=== PATIENT | male | born 1980 | race Caucasian/White ===

== ENCOUNTER 2019-05-28 04:21 | Inpatient (IN) | payer OTHER ==
[~2019-05-28] VITALS: Ht 170.2 cm; Wt 73.6 kg
[~2019-05-28 04:21] MED LIST: DIPH25 PO; DULO30 PO; HUMALOG
[2019-05-28 05:22] LABS: BASOPHILS ABSOLUTE AUTO 0.08 K/mm3 (0.00-0.23); BASOPHILS PERCENT AUTO 0 % (0-2); EOSINOPHILS PERCENT AUTO 0 % (0-6); Hematocrit 44.7 % (37.0-53.0); IMMATURE GRAN ABSOLUTE AUTO 0.24 K/mm3 (0.00-0.10); IMMATURE GRAN PERCENT AUTO 1 % (0-1); LYMPHOCYTES PERCENT AUTO 2 % (21-46); MONOCYTES ABSOLUTE AUTO 1.26 K/mm3 (0.16-1.47); MONOCYTES PERCENT AUTO 5 % (4-13); Mean Corpuscular HGB 32.2 pg (26.0-34.0); Mean Corpuscular HGB Conc 33.6 g/dL (31.5-36.5); Mean Corpuscular Volume 96 fL (80-100); Mean Platelet Volume 11.6 fL (9.1-12.4); NEUTROPHILS ABSOLUTE AUTO 24.94 K/mm3 (1.96-9.15); NEUTROPHILS PERCENT AUTO 93 % (41-73); Platelet Count 300 K/mm3 (150-400); RDW Coefficient Variation 12.2 % (11.7-14.2); RDW Standard Deviation 42.1 fL (35.1-46.3); Red Blood Cell Count 4.66 M/mm3 (4.30-5.90); White Blood Cell Count 26.92 K/mm3 (4.00-11.30)
[2019-05-28 05:33] LABS: Albumin, Blood 3.7 g/dL (3.4-5.0); Albumin/Globulin Ratio 0.9 (0.8-1.8); Bilirubin, Total 1.2 mg/dL (0.1-1.0); Bun/Creatinine Ratio 20.6 (12.0-20.0); Calcium, Blood 9.2 mg/dL (8.5-10.1); Creatinine, Blood 1.41 mg/dL (0.60-1.20); Globulin, Blood 4.1 g/dL (2.2-4.0); Potassium, Blood 5.4 mmol/L (3.5-5.5); Total Protein, Blood 7.8 g/dL (6.4-8.2)
[2019-05-28 07:50] LABS: Source, Urine Clean Catch
[2019-05-28 08:07] LABS: Bilirubin, Urine Neg (Neg); Blood, Urine Neg (Neg); Glucose Qualitative, Urine 4+ (Neg); Ketones, Urine 4+ (Neg); Leukocyte Esterase, Urine Neg (Neg); Nitrite, Urine Pos (Neg); Protein, Urine 1+ (Neg); Urobilinogen, Urine NORM (Normal)
[2019-05-28 08:17] LABS: Appearance, Urine Clear (Clear); Color, Urine Yellow (P-Yellow)
[2019-05-28 08:20] LABS: Bacteria Rare /hpf; Red Blood Cells, Urine 0-2 /hpf (0-2); Squamous Epithelial Cells Rare /hpf (Few); White Blood Cells, Urine 0-2 /hpf (0-5)
[2019-05-28 08:26] LABS: Glucose, Blood 601 mg/dL (70-99)
--- NOTE | 2019-05-28 09:26 | NUR ---
ASSUMPTION OF CARE ASSUMED CARE OF PT @ 0700. PT UP IN BED, VOMITING WITH 100ml OF EMESIS. CALL PLACED TO PROVIDER, NEW ORDERS FOR ZOFRAN AND PHENERGRAN OBTAINED, MEDICATED WITH PHENERGRAN. PT USING URINAL IN BED, SPECIMENT SENT TO LAB. DR POE TO SEE PT, ORDERS TO CALL WITH BMP RESULTS. INSULIN DRIP AT 5.
[2019-05-28 09:50] LABS: Glucose (ISTAT POC) 444 mg/dL (70-99)
--- NOTE | 2019-05-28 10:30 | NUR ---
IN TO SEE PT, PT HOLDING EMESIS BAG, NO EMESIS AT THIS TIME, ZOFRAN ADMINISTERED. INSULIN DRIP AT 4, CBG 417.
[2019-05-28 12:43] LABS: Anion Gap 8 mmol/L (6-16); Blood Urea Nitrogen 28 mg/dL (8-24); Bun/Creatinine Ratio 24.6 (12.0-20.0); CO2, Blood 23 mmol/L (21-32); Calcium, Blood 8.5 mg/dL (8.5-10.1); Chloride, Blood 112 mmol/L (98-108); Creatinine, Blood 1.14 mg/dL (0.60-1.20); Glomerular Filtration Rate >60 (60-); Glucose, Blood 344 mg/dL (70-99); Potassium, Blood 3.8 mmol/L (3.5-5.5)
[2019-05-28 12:46] LABS: Sodium, Blood 143 mmol/L (136-145)
--- NOTE | 2019-05-28 15:40 | NUR ---
CALLED DR POE, REVIEWED LAB RESULTS FOR 1200 BMP, UPDATED ON PT STATUS. PT CONTINUES TO HAVE NAUSEA/VOMITING AND ABD PAIN. D5 AND 1/2NS STARTED AT 100/hr. ORDERS TO START PTS HOME INSULIN PUMP AND DC INSULIN DRIP ONCE NAUSEA AND VOMITING HAS SUBSIDED.
--- NOTE | 2019-05-28 18:04 | NUR ---
SHIFT SUMMARY PT ORIENTED, DROWSY, AROUSES TO VERBAL STIMULI. PT REMAINS SINUS TACH ON THE MONITOR, RATE 100-120, INTERMITTENT HYPOTENSION, TMAX OF 99.6. ANION GAP CLOSED, LAST CBG 169, PT CONTINUES TO HAVE NAUSEA/VOMITING AND ABD PAIN T/O SHIFT. MEDICATED WITH PRN ZOFRAN, PHENERGAN AND FENTANYL. PT THIRSTY T/O SHIFT, EXPLAINED NPO STATUS AND IMPORTANCE OF NO ORAL INTAKE WHILE STILL NAUSEATED AND VOMITING, ORAL SWABS PROVIDED T/O SHIFT. PT CURRENTLY RESTING IN BED.
[2019-05-28 18:45] LABS: Anion Gap 3 mmol/L (6-16); Blood Urea Nitrogen 26 mg/dL (8-24); Bun/Creatinine Ratio 25.5 (12.0-20.0); CO2, Blood 26 mmol/L (21-32); Chloride, Blood 115 mmol/L (98-108); Creatinine, Blood 1.02 mg/dL (0.60-1.20); Glomerular Filtration Rate >60 (60-); Glucose, Blood 197 mg/dL (70-99); Potassium, Blood 3.7 mmol/L (3.5-5.5); Sodium, Blood 144 mmol/L (136-145)
--- NOTE | 2019-05-28 19:23 | NUR ---
ASSUMED CARE OF PT, REPORT RCV'D FROM VALENTE RAMOS. PT A/O X4 LAYING ON HIS RIGHT SIDE IN BED. PT REPORTS THAT HE IS STILL HAVING SIGNIFICANT NAUSEA AND OCCASIONAL ABDOMINAL PAIN. INSULIN GTT @ 3 UNITS/HR WITH Q1H CBG. D51/2 @ 100 MLS/HR (BAG 1 OF 1.5). PT HAS HYPOACTIVE BOWEL TONESX4 AND REPORTS TENDERNESS WITH PALPATION. PT REPORTS THAT HE HAS FELT THE NEED TO HAVE A BM TWICE SINCE ADMISSION BUT WAS UNABLE TO. PT DECLINES NEED FOR STOOL SOFTENERS/LAXATIVES, ENCOURAGED TO LET MEDICAL STAFF KNOW IF HE CHANGES HIS MIND. VSS. SEE FULL SHIFT ASSESSMENT.
--- NOTE | 2019-05-29 00:01 | NUR ---
CALL TO DR. BOWIE REGARDING PT FEELING CONSTIPATED, ORDERS TO SUBMIT BOWEL ORDER SET. UPDATED DR. OSORIO ON PT'S STATUS AND ORDER FOR 1.5 L D5 1/2 NS ONLY, PER DR. OSORIO KEEP D5 1/2 RUNNING FOR ADDITIONAL 1L FOR TOTAL OF 2.5L.
[2019-05-29 00:22] LABS: Anion Gap 8 mmol/L (6-16); Blood Urea Nitrogen 24 mg/dL (8-24); Bun/Creatinine Ratio 22.6 (12.0-20.0); CO2, Blood 25 mmol/L (21-32); Calcium, Blood 8.1 mg/dL (8.5-10.1); Chloride, Blood 115 mmol/L (98-108); Creatinine, Blood 1.06 mg/dL (0.60-1.20); Glomerular Filtration Rate >60 (60-); Glucose, Blood 145 mg/dL (70-99); Potassium, Blood 3.8 mmol/L (3.5-5.5); Sodium, Blood 148 mmol/L (136-145)
--- NOTE | 2019-05-29 06:11 | NUR ---
SHIFT SUMMARY PT REMAINS ON INSULIN GTT @3 UNITS/HR, D5 1/2 NS @ 100 ML/HR LAST CBG 127. PT CONTINUES TO HAVE NAUSEA BUT NO EPISODES OF EMESIS. PT INCONTINENT OF STOOL ON 1 OCCASION (MEDIUM/SOFT/BROWN) AND WAS ABLE TO AMBULATE TO TOILET (SBA) AND HAVE ANOTHER SMALL SOFT BM. PT HAS BEEN UP TO TOILET ON 2 OCCASIONS NOW. PT STEADY ON HIS FEET BUT EASILY EXHAUSTED AND NAUSEOUS. TMAX 100.2, ALL OTHER VSS. WILL REPORT TO DAYSHIFT NURSE.
[2019-05-29 06:16] LABS: Hematocrit 40.9 % (37.0-53.0); Hemoglobin 14.2 g/dL (13.5-17.5); Mean Corpuscular HGB 32.4 pg (26.0-34.0); Mean Corpuscular HGB Conc 34.7 g/dL (31.5-36.5); Mean Platelet Volume 10.3 fL (9.1-12.4); Platelet Count 288 K/mm3 (150-400); RDW Coefficient Variation 12.2 % (11.7-14.2); RDW Standard Deviation 42.7 fL (35.1-46.3); Red Blood Cell Count 4.38 M/mm3 (4.30-5.90); White Blood Cell Count 22.28 K/mm3 (4.00-11.30)
[2019-05-29 06:19] LABS: Mean Corpuscular Volume 93 fL (80-100)
[2019-05-29 06:27] LABS: Alanine Aminotransfer (ALT/SGP 17 U/L (12-78); Albumin, Blood 3.1 g/dL (3.4-5.0); Albumin/Globulin Ratio 0.9 (0.8-1.8); Alk Phos 68 U/L (50-136); Anion Gap 7 mmol/L (6-16); Aspartate Aminotrans (AST/SGOT 15 U/L (12-37); Bilirubin, Total 1.2 mg/dL (0.1-1.0); Blood Urea Nitrogen 22 mg/dL (8-24); Bun/Creatinine Ratio 21.8 (12.0-20.0); CO2, Blood 27 mmol/L (21-32); Calcium, Blood 8.5 mg/dL (8.5-10.1); Chloride, Blood 112 mmol/L (98-108); Creatinine, Blood 1.01 mg/dL (0.60-1.20); Globulin, Blood 3.6 g/dL (2.2-4.0); Glomerular Filtration Rate >60 (60-); Glucose, Blood 90 mg/dL (70-99); Potassium, Blood 3.2 mmol/L (3.5-5.5); Sodium, Blood 146 mmol/L (136-145); Total Protein, Blood 6.7 g/dL (6.4-8.2)
--- NOTE | 2019-05-29 07:30 | NUR ---
SHIFT ASSESSMENT PT IS DROWSY THIS AM. HE IS ORIENTED TO HIMSELF AND PLACE AND COOPERATIVE WITH CARE. STATES HE IS IN FAIR AMOUNT OF PAIN TO HIS ABD AND THROAT. STATES HE DOES NOT WANT ANY PAIN MEDS. PAIN GETS BETTER WITH RE-POSISTIONING. PT STATES THROAT IS SORE FROM VOMITTING. HE STATES NAUSE IS STILL BAD THUS WILL GIVE HIM SOME ZOFRAN IV AND CON'T TO MONITOR FOR RESULTS. ASSESSMENT IS OTHERWISE BENIGN AND PT HAS NO OTHER COMPLAINTS. IV TO LT HAD HAS INSULIN AND IV FLUIDS RUNNING ORDERED WITH NO S/S OF INFILTRATION. INSULIN PUMP IS AT 0.5MG/ML/HR. WILL CALL MD REGARDING INSULIN PUMP STATUS WITH STABLE BLOOD SUGARS. PT DOES HAVE A LOW POTASSIUM WILL DISCUSS WITH MD SUPPLEMENT. PT ALSO HAS A TEMP OF 101.1 WILL DISCUSS WITH MD WELL. WILL CON'T TO MONITOR PT AND TREAT INDICATED T/O SHIFT. CALL LIGHT IN REACH.
--- NOTE | 2019-05-29 08:14 | NUR ---
UPDATE INSULIN PUM WAS TURNED OFF MD ORDERED. PT IS TO RESUME USING HIS HOME INSULIN PUMP. PT AT THIS TIME RE-STARTED HIS INSULIN PUMP. WILL CON'T TO DISCUSS WITH HIM ADJUSTING HIS PUMP. IV FLUIDS WERE ALSO TURNED OFF AT THIS TIME. DR KEVIN DID NOT HAVE ANY FURTHER ORDERS AT THIS TIME.
--- NOTE | 2019-05-29 10:45 | NUR ---
BLOOD SUGAR LEVELS INCREASING PT AT THIS TIME CON'T TO HAVE INCREASING LEVELS ON HIS BLOOD SUGARS. HE DID HAVE TO INCREASE HIS PUMP RATE WITH NO RESULTS. DR POE WAS CALLED AND WE WILL CON'T TO ADJUST WITH HIS HOME INSULIN PUMP. PT ALSO WILL RECIEVE IV POTASSIUM AT THIS TIME R/T LOW K LEVELS.
--- NOTE | 2019-05-29 13:45 | NUR ---
SHIFT UPDATE PT CON'T TO BE STABLE. HE HOWEVER STILL HAS BLOOD SUGARS IN THE 200'S BUT HOLDING STABLE WITH HIS HOME INSULIN PUMP. PT CON'T TO HAVE K RUNNING IV. HE ALSO CON'T TO HAVE COMPLAINTS OF NAUSEA. CALLED DR POE AND WILL TRANSFER PT TO MEDICAL FLOOR FOR NOW.
--- NOTE | 2019-05-29 14:46 | NUR ---
REPORT GIVEN REPORT GIVEN TO RICHARD DOE. PT CON'T TO BE STABLE. WILL TRANSFER PT UPSTAIRS WHEN ROOM AVALIABLE.
--- NOTE | 2019-05-29 17:02 | NUR ---
PATIENT ARRIVED TO MEDICAL FLOOR VIA WHEELCHAIR WITH HIS SIGNIFICANT OTHER AT HIS SIDE. PATIENT FELT NAUSEATED UPON ARRIVAL. HE TRANSFERED INTO THE BED. HIS BLOOD SUGAR WAS TAKEN AND THE RESULT WAS 236. REGLAN WAS GIVEN IN ICU. THE PATIENT STATES IT HAS YET TO HELP HIS NAUSEA. HE WANTS TO TRY TO EAT SOME DINNER. WILL CONTINUE TO MONITOR.
--- NOTE | 2019-05-29 19:20 | NUR ---
1545-DR POE CAME BY TO SEE PT. PT MAY BE DISCHARGED TONIGHT IF HE'S NOT FEELING NAUSEATED OR VOMITING AND ABLE TO HOLD HIS FOOD. 1615-CALLED DR. POE REGARDING PT'S STILL WITH UPSET STOMACH AND FEELING NAUSEATED. PT WILL BE GIVEN REGLAN ORDERED. HE ORDERED TO KEEP PATIENT IN HOSPITAL FOR ONE MORE NIGHT. 1640-PT WAS TRANSFERED TO ROOM 340.
--- NOTE | 2019-05-30 05:13 | NUR ---
SHIFT SUMMARY PT AOX3, VS STABLE, DENIES DYSPNEA. CBG 167 @HS. REPORTS 2/10 PAIN IN THROAT & MID ABDOMEN R/T THROWING UP. DENIES ANY EMESIS THIS SHIFT, HOWEVER HAS FELT NAUSEOUS & REPORTS DRY HEAVING. MEDICATED 1X W/PHENERGAN PER ORDERS. PT & SIGNIFICANT OTHER CONCERNED TO WHY PT IS DRY HEAVING, STATES HE HAS NEVER FELT THIS WAY BEFORE W/INCREASED CBGS. STILL UNABLE TO TOLERATE FOOD @THIS TIME, HAS BEEN ABLE TO KEEP SMALL SIPS OF WATER DOWN. HAD 1 LIQUID INCONTINENT BM WHILE SLEEPING & STATES THE SAME THING OCCURRED THE PREVIOUS NIGHT. I WILL CONTINUE TO MONITOR PT UNTIL NEXT RN ASSUMES CARE, CALL LIGHT IN REACH.
[2019-05-30 06:19] LABS: Anion Gap 7 mmol/L (6-16); Blood Urea Nitrogen 16 mg/dL (8-24); Bun/Creatinine Ratio 19.5 (12.0-20.0); CO2, Blood 28 mmol/L (21-32); Calcium, Blood 8.2 mg/dL (8.5-10.1); Chloride, Blood 105 mmol/L (98-108); Creatinine, Blood 0.82 mg/dL (0.60-1.20); Glomerular Filtration Rate >60 (60-); Glucose, Blood 258 mg/dL (70-99); Potassium, Blood 3.7 mmol/L (3.5-5.5); Sodium, Blood 140 mmol/L (136-145)
--- NOTE | 2019-05-30 08:00 | NUR ---
PT PLEASANT COOP A/O. DENIES PAIN HOWEVER STILL NAUSEOUS AND ADMITS SOME EMESIS STILL THIS AM. H/R REG, NO MURMER NOTED. NO TELE. LUNGS CLEAR, RESP EASY, UNLABORED. ON R.A. BT X4 LAST BM SMALL THIS AM. VOIDS PER BATHROOM. INDEPENDANT IN ROOM. BED IN LOW POSITION, CALL LITE IN REACH, CALLS APPROP
--- NOTE | 2019-05-30 14:42 | NUR ---
PT STATES FEELS SOME BETTER. ALTERNATING ZOFRAN AND REGLAN SEEMS TO BE HELPING.
--- NOTE | 2019-05-30 16:40 | NUR ---
PT PLEASANT TODAY, DENIES EMESIS SINCE BKFST. REGLAN A/C AND ZOFRAN INBETWEEN MEALS SEEMS TO BE WORKING. CONTINUE TO FOLLOW. PT DID ADMIT TO DR MARIEL CARR. NO OTHER CONCERNS AT THIS TIME. PT ABLE TO SHOWER TODAY. GIRLFRIEND IN ROOM MUCH OF DAY. BED IN LOW POSITOIN, CALL LITE IN REACH, CALLS APPROP
--- NOTE | 2019-05-31 06:08 | NUR ---
GRAIN TRADER SUMMARY PT A/O X4. WAS QUIET AND SLEPT WELL THROUGHOUT THE NIGHT. PT HAS OWN INSULIN PUMP THAT HE TAKES CARE OF HIMSELF. WHEN ASKED ABOUT THE INSULIN PUMP PT STATED THAT HE CALIBRATES IT BASED ON HIS MOST RECENT BLOOD SUGAR. ZOFRAN GIVEN ONCE EARLY IN THE SHIFT. PT DID NOT HAVE EMISIS THROUHOUT THE GRAIN TRADER. PT'S SIGNIFICANT OTHER VISTED PT FOR A LITTLE BIT. WILL CONTINUE TO MONITOR.
[2019-05-31] MEDS ORDERED: METO5A PO (12:41)
[2019-05-31] MEDS ORDERED: ONDA4 PO (12:41)
[2019-05-31] MEDS ORDERED: OMEPRAZOLE20 MG PO (12:43)
--- NOTE | 2019-05-31 17:51 | NUR ---
PT AOX4 AND INDEPENDENT IN ROOM. PT HAD GOOD COVERAGE TODAY ON BLOOD SUGARS, BUT WAS STILL HAVING NAUSEA,PT WAS TREATED PER EMAR. PT'S DISCHARGE RELIED ON PT BEING ABLE TO EAT HIS LUNCH TODAY. PT REPORTED ONLY ONE EPISODE OF EMESIS TODAY EARLY ON IN THE START OF THE SHIFT. PT ATE SOME OF HIS LUNCH AND WAS ABLE TO SIT IN ROOM FOR MORE THAN AN HOUR AND THEN TAKE A TRIP IN THE WHEELCHAIR WITH OUT EMESIS OCCURING. PER DR POE PT WAS GOOD TO DISCHARGE. PT HAD ALL MEDICATIONS REVIEWED AND EDUCATIONAL MATERIAL SENT. MEDICATIONS FAXED TO [facility] PER PT REQUEST AND FOLLOW UP APPOINTMENTS SET UP FOR [facility] TO CALL AND SCHEDULE WITH PT. ALL PERSONAL BELONINGS WERE WITH PT AND PT ESCORTED TO [facility] AT DISCHARGE.
== END 2019-05-31 15:55 | disposition home or self-care (01) | DRG 638 ==
LOC: ER 04:21 → ICUW 04:22 → ER 05:45 → ICUW 05:45 → MEDS 05-29 16:40 → ENPENDDIS 05-31 10:02 → MEDS 05-31 15:55
PROVIDERS: Emergency Medicine; Internal Medicine; ADMIT Internal Medicine
DX: E10.10 Type 1 diabetes mellitus with ketoacidosis without coma (principal); N17.9 Acute kidney failure, unspecified; E86.0 Dehydration; E87.6 Hypokalemia; Z96.41 Presence of insulin pump (external) (internal); F12.188 Cannabis abuse with other cannabis-induced disorder
CPT/HCPCS: 36415; 74150; 80048; 80053; 81001; 82010; 82800; 82947; 83690; 85025; 85027; 87086; 96361; 96374; 99285-25; J1650; J1815; J2405; J2550; J2765; J3010; J3480; J7030; J7042